=== PATIENT | female | born 1980 | race Caucasian/White ===

== ENCOUNTER 2021-01-29 10:17 | Emergency (ER) | payer OTHER ==
[~2021-01-29] VITALS: Ht 175.3 cm; Wt 79.8 kg
--- NOTE | 2021-01-29 10:22 | PHYS DOC ---
Adult General HPI HPI Patient is a 40-year-old female presenting for nausea and vomit. This is an acute on chronic problem. She has history of lap band performed 10 years ago with subsequent conversion to full gastric bypass. She has issues with gastroparesis and subsequent nausea and vomit as a result. Patient concerned as she has been more weak for past 1 week than usual. She has history of anemia due to intra-abdominal surgeries and heavy periods admitting she just finished a typical period for her yesterday. She also reports to history of electrolyte derangement due to intra-abdominal surgeries and vomiting. States for past 48 hours she has been more nauseous than usual and has suffered x3 episodes of n onbloody nonbilious emesis. She reports now she has " nothing left in my stomach" to throw up and subsequently is caused a cramping type of pain that is classic for her when she has been dehydrated in the past. Nothing known makes better, p.o. intake makes worse. She has received x2 vaccines against COVID-19. She has no other concerning signs or symptoms such as fever, vision changes, chest pain, ripping or tearing sensation in torso, shortness of breath or cough, urinary symptoms, changes in bladder or bowel function Review of Systems Review of Systems Fourteen body systems of review of systems have been reviewed. See HPI for pertinent positives and negative responses, other galloway all other systems are negative, non-pertinent or non-contributory Physical Exam Physical Exam Constitutional: Well developed, well nourished, no acute distress, non-toxic appearance. HENT: Normocephalic, atraumatic, bilateral external ears normal, oropharynx mois t, no oral exudates, nose normal. Eyes: PERRLA, EOMI, conjunctiva normal, no discharge. Neck: Normal range of motion, no tenderness, supple, no stridor. Cardiovascular: Heart rate regular, sinus rhythm, no murmurs rubs or gallops Lungs & Thorax: Bilateral breath sounds clear to auscultation Abdomen: Bowel sounds normal, soft, no tenderness, no masses, no pulsatile masses. Nonsurgical abdomen, no peritoneal signs Skin: Warm, dry, no erythema, no rash. Back: No tenderness, no CVA tenderness. Extremities: No tenderness, no cyanosis, no clubbing, ROM intact, no edema. Neurologic: Alert and oriented X 3, grossly normal motor & sensory function, no focal deficits noted. Psychologic: Affect normal, judgement normal, mood normal. Current Patient Data Vital Signs Vital Signs Date Time Temp Pulse Resp B/P (MAP) Pulse Ox O2 Delivery O2 Flow Rate FiO2 01/29/21 10:22 98.4 89 18 129/89 (102) 100 Room Air Vital Signs Date Time Temp Pulse Resp B/P (MAP) Pulse Ox O2 Delivery O2 Flow Rate FiO2 01/29/21 12:03 18 100 Room Air 01/29/21 10:22 98.4 89 129/89 (102) Lab Results Laboratory Tests Test 01/29/21 10:35 White Blood Count 7.3 x10^3/uL Red Blood Count 5.01 x10^6/uL Hemoglobin 9.8 g/dL Hematocrit 32.4 % Mean Corpuscular Volume 65 fL Mean Corpuscular Hemoglobin 20 pg Mean Corpuscular Hemoglobin Concent 30 g/dL Red Cell Distribution Width 18.4 % Platelet Count 414 x10^3/uL Neutrophils (%) (Auto) 73 % Lymphocytes (%) (Auto) 18 % Monocytes (%) (Auto) 6 % Eosinophils (%) (Auto) 2 % Basophils (%) (Auto) 1 % Neutrophils # (Auto) 5.4 x10^3uL Lymphocytes # (Auto) 1.3 x10^3/uL Monocytes # (Auto) 0.5 x10^3/uL Eosinophils # (Auto) 0.2 x10^3/uL Basophils # (Auto) 0.1 x10^3/uL Platelet Estimate Pending Sodium Level 138 mmol/L Potassium Level 4.0 mmol/L Chloride Level 101 mmol/L Carbon Dioxide Level 27 mmol/L Anion Gap 10 Blood Urea Nitrogen 7 mg/dL Creatinine 0.6 mg/dL Estimated GFR (Cockcroft-Gault) 110.2 BUN/Creatinine Ratio 12 Glucose Level 91 mg/dL Calcium Level 9.3 mg/dL Total Bilirubin 0.3 mg/dL Aspartate Amino Transf (AST/SGOT) 17 U/L Alanine Aminotransferase (ALT/SGPT) 21 U/L Alkaline Phosphatase 78 U/L Troponin I Quantitative < 0.017 ng/mL Total Protein 7.7 g/dL Albumin 4.2 g/dL Albumin/Globulin Ratio 1.2 Current Medications Medications (Trade) Dose Ordered Sig/Bhanu Route PRN Reason Start Time Stop Time Status Last Admin Dose Admin Sodium Chloride 1,000 ml @ 1,000 mls/hr 1X ONCE IV 01/29/21 10:30 01/29/21 11:29 DC 01/29/21 10:52 Ondansetron HCl (Zofran) 4 mg 1X ONCE IVP 01/29/21 10:45 01/29/21 10:47 DC 01/29/21 10:51 Sodium Chloride 1,000 ml @ 1,000 mls/hr 1X ONCE IV 01/29/21 12:00 01/29/21 12:59 01/29/21 12:02 Ondansetron HCl (Zofran) 4 mg 1X ONCE IVP 01/29/21 12:00 01/29/21 12:01 DC 01/29/21 12:02 Fentanyl Citrate (Fentanyl 2ml Vial) 50 mcg 1X ONCE IVP 01/29/21 12:00 01/29/21 12:01 DC 01/29/21 12:03 EKG EKG EKG ordered and interpreted by myself at 1042 hrs. as sinus rhythm at 77 bpm, unremarkable intervals, no axis deviation, no obvious ischemic findings, no STEMI Radiology/Procedures Radiology/Procedures [] Heart Score C/O Chest Pain: No HEART Score for Chest Pain: HEART Score for Chest Pain Response (Comments) Value History Slighlty/Non-Suspicious 0 ECG Normal 0 Age < 45 0 Risk Factors No Risk Factors 0 Troponin < Normal Limit 0 Total 0 Risk Factors: Risk Factors: DM, Current or recent (<one month) smoker, HTN, HLP, family history of CAD, obesity. Risk Scores: Risk Factors: DM, Current or recent (<one month) smoker, HTN, HLP, family history of CAD, obesity. Course & Med Decision Making Course & Med Decision Making ABCs unremarkable. I disclosed entirety of ER findings and discussed most likely diagnosis of nausea and vomiting of likely self-limiting/benign etiology. Other diagnoses were discussed with patient such as intra-abdominal emergencies, ACS and other concerning diagnoses but all deemed less likely causes of patient's presentation. Patient's condition improved with provided intervention in ER setting. Joint decision to defer any further diagnostic work-up or intervention in ER setting and defer to outpatient primary care visit. Patient a candidate for vitamin B12 injections and iron infusions given history of gastric bypass. Plan of care discussed at length with need for close outpatient follow-up to review today's ER visit stressed. Strict return precautions were also discussed at length with good understanding verbalized by patient. Patient voiced understanding and agreement with the plan. Patient knows to come back for repeat evaluation if concerning signs or symptoms present prior to outpatient follow- up. Hemodynamically stable, ambulatory and well-appearing at time of disposition. Dragon Disclaimer Dragon Disclaimer This electronic medical record was generated, in whole or in part, using a voice recognition dictation system. Departure Departure: Impression: Primary Impression: Nausea & vomiting Disposition: HOME / SELF CARE / HOMELESS Condition: IMPROVED Referrals: PHIL GRADY (PCP) Additional Instructions: You were seen for nausea and vomiting. Your vitals, physical exam and comprehensive ER work-up was nonconcerning for any emergent or surgical issues. As disclosed, you need to see your primary care physician in outpatient setting to review your anemia that is likely multifactorial, from your iron deficiency anemia and vitamin B12 deficiency. You have been prescribed an antinausea medicine which you should use as needed. Please continue to prioritize good fluids such as water. You should return to the ED if you develop abdominal pain, fever > 100.3, black/bloody stools, black/bloody vomiting, cannot keep water down, or any other new or concerning symptoms. Scripts Ondansetron (ONDANSETRON ODT) 4 Mg Tab.rapdis 1 TAB PO PRN Q6-8HRS for NAUSEA, #16 TAB Prov: RAFA WHEELER DO 01/29/21 RAFA WHEELER DO Jan 29, 2021 10:22
[2021-01-29] MEDS ORDERED: IV NORMAL SALINE 1,000ML 1,000 ML IV ONE ×2 (10:30→12:00)
[2021-01-29] MEDS ORDERED: ONDANSETRON PF 4 MG/2 ML VIAL. IVP ONE ×2 (10:45→12:00)
--- NOTE | 2021-01-29 10:46 | EKG ---
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
[2021-01-29 11:20] LABS: BASO # 0.1 x10^3/uL (0.0-0.2); BASO % 1 % (0-3); EOS # 0.2 x10^3/uL (0.0-0.7); EOS % 2 % (0-3); HEMATOCRIT 32.4 % (36.0-47.0); HEMOGLOBIN 9.8 g/dL (12.0-15.5); LYMPH # 1.3 x10^3/uL (1.0-4.8); LYMPH % 18 % (24-48); MEAN CORPUSCULAR HEMOGLOBIN 20 pg (25-35); MEAN CORPUSCULAR HGB CONC 30 g/dL (31-37); MEAN CORPUSCULAR VOLUME 65 fL (79-100); MONO # 0.5 x10^3/uL (0.0-1.1); MONO % 6 % (0-9); NEUT # 5.4 x10^3uL (1.8-7.7); NEUT % 73 % (31-73); PLATELET COUNT 414 x10^3/uL (140-400); RED BLOOD COUNT 5.01 x10^6/uL (3.50-5.40); RED CELL DISTRIBUTION WIDTH 18.4 % (11.5-14.5); WHITE BLOOD COUNT 7.3 x10^3/uL (4.0-11.0)
[2021-01-29 11:32] LABS: CALCIUM 9.3 mg/dL (8.5-10.1); CREATININE 0.6 mg/dL (0.6-1.0); GFR 110.2
[2021-01-29 11:37] LABS: ALBUMIN 4.2 g/dL (3.4-5.0); ALBUMIN/GLOBULIN RATIO 1.2 (1.0-1.7); TOTAL BILIRUBIN 0.3 mg/dL (0.2-1.0); TOTAL PROTEIN 7.7 g/dL (6.4-8.2)
[2021-01-29] MEDS ORDERED: ONDA4TAB12 PO (12:24)
[2021-01-29 12:41] LABS: ANISOCYTOSIS SLIGHT; HYPOCHROMIA MOD; MICROCYTOSIS MOD; PLT ESTIMATE ADEQUATE (ADEQUATE)
[2021-01-29 12:50] VITALS: BP 133/78
== END 2021-01-29 13:04 | disposition home or self-care (01) ==
LOC: ER 10:17
DX: R11.2 Nausea with vomiting, unspecified (principal); Z98.84 Bariatric surgery status
CPT/HCPCS: 36415; 80053; 84484; 85025; 93005; 96361; 96374; 96375; 96376; 99285; J2405; J3010; J7030

== ENCOUNTER 2021-05-23 12:15 | Emergency (ER) | payer OTHER ==
[~2021-05-23] VITALS: Ht 175.3 cm; Wt 75.0 kg
[~2021-05-23 12:15] MED LIST: ONDA4TAB12 PO
[2021-05-23] MEDS: IV NORMAL SALINE 1,000ML 1,000 ML IV SCH ×2 (15:45→16:39)
[2021-05-23] MEDS ORDERED: ONDANSETRON PF 4 MG/2 ML VIAL. IVP ONE ×2 (15:45→17:30)
--- NOTE | 2021-05-23 15:46 | PHYS DOC ---
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 Patient reports that she has a history of dehydration due to her gastric bypass surgery. Patient states that she is tolerating oral intake and has tried to increase her fluids as she could feel dehydration coming as evidenced by fatigue, nausea and cramping on but was unsuccessful. She states that her symptoms started 5 days ago. She has a history of iron deficiency anemia and received an iron infusion on . Patient denies any fevers, vomiting, diarrhea. Patient states that her symptoms are usually improved when she gets IV fluids. (AYAN MONTGOMERY APRN) Review of Systems: Review of Systems: Constitutional: See HPI GI: See HPI Neurologic: Reporting generalized headache (AYAN MONTGOMERY APRN) Allergies: Allergies: Allergies Coded Allergies Type Severity Reaction Last Updated Verified No Known Drug Allergies 01/29/21 No (AYAN MONTGOMERY APRN) Physical Exam: PE: Constitutional: Well developed, well nourished, no acute distress, non-toxic appearance. [] HENT: Normocephalic, atraumatic, bilateral external ears normal, oropharynx moist, no oral exudates, nose normal. [] Eyes: PERRL, EOMI, conjunctiva normal, no discharge. [] Neck: Normal range of motion, no tenderness, supple, no stridor. [] Cardiovascular:Heart rate regular rhythm, no murmur [] Lungs & Thorax: Bilateral breath sounds clear to auscultation [] Abdomen: Bowel sounds normal, soft, negative Miller sign, negative Rovsing sign, tenderness with palpation to left upper quadrant, no guarding, no rigidity,, no masses, no pulsatile masses. [] Skin: Warm, dry, no erythema, no rash. [] Back: Full range of motion Extremities: No tenderness, no cyanosis, no clubbing, ROM intact, no edema. [] Neurologic: Alert and oriented X 3, normal motor function, normal sensory function, no focal deficits noted. [] Psychologic: Affect normal, judgement normal, mood normal. [] (AYAN MONTGOMERY APRN) Current Patient Data: Labs: Laboratory Tests Test 05/23/21 16:00 05/23/21 16:53 White Blood Count 5.7 x10^3/uL Red Blood Count 4.71 x10^6/uL Hemoglobin 10.2 g/dL Hematocrit 33.3 % Mean Corpuscular Volume 71 fL Mean Corpuscular Hemoglobin 22 pg Mean Corpuscular Hemoglobin Concent 31 g/dL Red Cell Distribution Width 33.0 % Platelet Count 402 x10^3/uL Neutrophils (%) (Auto) 77 % Lymphocytes (%) (Auto) 17 % Monocytes (%) (Auto) 4 % Eosinophils (%) (Auto) 1 % Basophils (%) (Auto) 1 % Neutrophils # (Auto) 4.4 x10^3uL Lymphocytes # (Auto) 1.0 x10^3/uL Monocytes # (Auto) 0.2 x10^3/uL Eosinophils # (Auto) 0.1 x10^3/uL Basophils # (Auto) 0.0 x10^3/uL Sodium Level 139 mmol/L Potassium Level 4.0 mmol/L Chloride Level 103 mmol/L Carbon Dioxide Level 26 mmol/L Anion Gap 10 Blood Urea Nitrogen 8 mg/dL Creatinine 0.5 mg/dL Estimated GFR (Cockcroft-Gault) 135.3 BUN/Creatinine Ratio 16 Glucose Level 83 mg/dL Calcium Level 8.6 mg/dL Total Bilirubin 0.3 mg/dL Aspartate Amino Transf (AST/SGOT) 28 U/L Alanine Aminotransferase (ALT/SGPT) 26 U/L Alkaline Phosphatase 63 U/L Total Protein 7.5 g/dL Albumin 3.8 g/dL Albumin/Globulin Ratio 1.0 Lipase 62 U/L Urine Collection Type Clean catch Urine Color Red Urine Clarity Cloudy Urine pH 8.0 Urine Specific [place] 1.025 Urine Protein 100 mg/dl Urine Glucose (UA) Neg mg/dL Urine Ketones (Stick) 15 mg/dL Urine Blood Large Urine Nitrite Neg Urine Bilirubin Neg Urine Urobilinogen Dipstick 2.0 mg/dL Urine Leukocyte Esterase Neg Urine RBC Tntc /HPF Urine WBC 1-4 /HPF Urine Squamous Epithelial Cells Few /LPF Urine Bacteria Few /HPF Current Medications Medications (Trade) Dose Ordered Sig/Bhanu Route PRN Reason Start Time Stop Time Status Last Admin Dose Admin Sodium Chloride 1,000 ml @ 1,000 mls/hr Q1H IV 05/23/21 15:45 05/23/21 17:44 DC 05/23/21 16:39 Fentanyl Citrate (Fentanyl 2ml Vial) 50 mcg 1X ONCE IVP 05/23/21 15:45 05/23/21 15:46 DC 05/23/21 15:45 Ondansetron HCl (Zofran) 4 mg 1X ONCE IVP 05/23/21 15:45 05/23/21 15:46 DC 05/23/21 15:45 Ondansetron HCl (Zofran) 4 mg 1X ONCE IVP 05/23/21 17:30 05/23/21 17:31 DC 05/23/21 17:30 Fentanyl Citrate (Fentanyl 2ml Vial) 50 mcg 1X ONCE IVP 05/23/21 17:30 05/23/21 17:31 DC 05/23/21 17:30 Vital Signs: Vital Signs Date Time Temp Pulse Resp B/P (MAP) Pulse Ox O2 Delivery O2 Flow Rate FiO2 05/23/21 12:34 98.0 86 18 145/74 (97) 100 Room Air (AYAN MONTGOMERY APRN) EKG: EKG: [] (AYAN MONTGOMERY APRN) Radiology/Procedures: Radiology/Procedures: [] (AYAN MONTGOMERY APRN) Heart Score: C/O Chest Pain: N/A Risk Factors: Risk Factors: DM, Current or recent (<one month) smoker, HTN, HLP, family history of CAD, obesity. Risk Scores: Score 0 - 3: 2.5% MACE over next 6 weeks - Discharge Home Score 4 - 6: 20.3% MACE over next 6 weeks - Admit for Clinical Observation Score 7 - 10: 72.7% MACE over next 6 weeks - Early Invasive Strategies (AYAN MONTGOMERY APRN) Course & Med Decision Making: Course & Med Decision Making Pertinent Labs and Imaging studies reviewed. (See chart for details) [] Patient presents to the emergency department for stomach cramping with nausea that started 5 days ago. Patient states that she has a history of dehydration due to gastric bypass and her symptoms are usually improved with IV fluids. Work-up in the ER consisted of blood work, urinalysis. Patient treated with IV fluids, nausea medication and pain medication. Patient is able to tolerate oral intake. Lab work was unremarkable. After treatment in the emergency department, patient reports improvement in her symptoms. Patient states that she has nausea medication at home. I discussed with patient all findings and diagnostic testing as well as the need to follow-up with PCP for further evaluation and treatment or return to the ER if any new or worsening symptoms. Strict return precautions were also discussed at length. Patient voiced understanding and agreement with the plan. Patient is hemodynamically stable at the time of disposition. (AYAN MONTGOMERY APRN) Dragon Disclaimer: Dragon Disclaimer: This electronic medical record was generated, in whole or in part, using a voice recognition dictation system. (AYAN MONTGOMERY APRN) Departure Departure: Impression: Primary Impression: Nausea & vomiting Qualified Codes: R11.2 - Nausea with vomiting, unspecified Disposition: HOME / SELF CARE / HOMELESS Condition: GOOD Referrals: PHIL GRADY (PCP) Patient Instructions: Nausea and Vomiting Additional Instructions: You were seen in the emergency department today for abdominal pain and nausea. Your blood work was unremarkable. Please continue taking the nausea medication that you have at home and increase your oral intake. Follow-up with your primary care provider tomorrow regarding your ER visit. Please return to the emergency department if you develop worsening of your abdominal pain, intractable vomiting, high fevers refractory to treatment, blood in your stools or vomit or any new or worsening concerns. Attending Signature Attending Signature I have participated in the care of this patient and I have reviewed and agree with all pertinent clinical information above including history, exam, and recommendations. (MICHAEL MAYORGA MD) AYAN MONTGOMERY APRN May 23, 2021 15:46 MICHAEL MAYORGA MD May 24, 2021 05:31
[2021-05-23 16:23] LABS: BASO % 1 % (0-3); EOS # 0.1 x10^3/uL (0.0-0.7); EOS % 1 % (0-3); HEMATOCRIT 33.3 % (36.0-47.0); HEMOGLOBIN 10.2 g/dL (12.0-15.5); LYMPH % 17 % (24-48); MEAN CORPUSCULAR HEMOGLOBIN 22 pg (25-35); MEAN CORPUSCULAR HGB CONC 31 g/dL (31-37); MEAN CORPUSCULAR VOLUME 71 fL (79-100); MONO # 0.2 x10^3/uL (0.0-1.1); MONO % 4 % (0-9); NEUT # 4.4 x10^3uL (1.8-7.7); NEUT % 77 % (31-73); PLATELET COUNT 402 x10^3/uL (140-400); RED BLOOD COUNT 4.71 x10^6/uL (3.50-5.40); WHITE BLOOD COUNT 5.7 x10^3/uL (4.0-11.0)
[2021-05-23 16:35] LABS: CALCIUM 8.6 mg/dL (8.5-10.1); CREATININE 0.5 mg/dL (0.6-1.0); GFR 135.3
[2021-05-23 16:41] LABS: ALBUMIN 3.8 g/dL (3.4-5.0); TOTAL BILIRUBIN 0.3 mg/dL (0.2-1.0); TOTAL PROTEIN 7.5 g/dL (6.4-8.2)
[2021-05-23 17:33] LABS: BACTERIA,URINE FEW /HPF (0-FEW); BILIRUBIN,URINE NEG (NEG); CLARITY,URINE CLOUDY; COLOR,URINE RED; GLUCOSE,URINE NEG (NEG); NITRITE,URINE NEG (NEG); RBC,URINE TNTC /HPF (0-2); SQUAMOUS EPITHELIAL CELL,UR FEW /LPF
[2021-05-23 17:49] VITALS: BP 123/79
[2021-05-23 18:14] LABS: U PREG PATIENT NEGATIVE (NEG)
== END 2021-05-23 18:25 | disposition home or self-care (01) ==
LOC: ER 12:15
DX: R11.2 Nausea with vomiting, unspecified (principal); R10.12 Left upper quadrant pain; Z90.89 Acquired absence of other organs; Z90.49 Acquired absence of other specified parts of digestive tract; Z98.84 Bariatric surgery status
CPT/HCPCS: 36415; 80053; 81001; 81025; 83690; 85025; 96361; 96374; 96375; 96376; 99285; J2405; J3010; J7030